=== PATIENT | male | born 1995 | race Caucasian/White ===

== ENCOUNTER 2023-08-21 01:06 | Emergency (ER) | payer OTHER ==
[2023-08-21 01:20] VITALS: TEMP 99.1
--- NOTE | 2023-08-21 01:31 | ERPHSYRPT ---
<CHRISTIE GARCIA - Last Filed: 08/21/23 06:40> - History of Present Illness Time Seen by Provider: 08/21/23 01:20 Historian: patient, family Exam Limitations: physical impairment Patient Subjective Stated Complaint: pt states he was awaken with sharp pain to left chest Triage Nursing Assessment: pt ambulated into the er; pt is axo x4; c/o chest pain; pt states 10/10 pain to left chest; pt states SOB; pt states difficulty with deep breath; clear apical heart tone; strong freddy radial pulses; strong freddy pedal pulse; clear lung sounds in all lobes; no edema present; skin PDW; tachycardic; hypertensive Physician History: This is an obese 28-year-old white male patient of Dr. Shafer who does not smoke cigarettes and does not use illicit drugs and presents with sudden onset of left lateral chest pain described as a stabbing pain that is sharp and worse with deep breath. He did not suffer a fall or acute trauma to the area. He has no bleeding or clotting disorders. He has never had anything like this before. Patient has no documented history of coronary disease. However, he has a strong family history of coronary artery disease. He has not had any cough or fevers Timing/Duration: today Activities at Onset: none Quality: sharpness, stabbing Location: other (Left lateral chest) Chest Pain Radiation: no radiation Severity of Pain-Max: moderate Severity of Pain-Current: moderate Modifying Factors: Improves With: breathing (Worsens pain with deep breath), sitting up (Improved the pain) Associated Symptoms: denies symptoms Prior Chest Pain/Cardiac Workup: no prior chest pain Nitro Today/Relief: no nitro taken today Aspirin Treatment Today: no aspirin today Allergies/Adverse Reactions: Penicillins Allergy (Verified 08/21/23 01:07) Home Medications: Loratadine [Claritin] 10 mg PO DAILY 08/21/23 [History] Sertraline HCl [Zoloft] 100 mg PO DAILY 08/21/23 [History] Hx Tetanus, Diphtheria Vaccination/Date Given: Yes Hx Influenza Vaccination/Date Given: Yes Hx Pneumococcal Vaccination/Date Given: No Immunizations Up to Date: No Travel Risk - International Travel Have you traveled outside of the country in past 3 weeks: No - Emerging Infectious Disease Are you exhibiting symptoms associated with any current EIDs: No - Review of Systems Constitutional: No Symptoms Eyes: No Symptoms Ears, Nose, & Throat: No Symptoms Respiratory: No Symptoms Cardiac: Chest Pain Abdominal/Gastrointestinal: No Symptoms Genitourinary Symptoms: No Symptoms Musculoskeletal: No Symptoms Skin: No Symptoms Neurological: No Symptoms Psychological: No Symptoms Endocrine: No Symptoms Hematologic/Lymphatic: No Symptoms Immunological/Allergic: No Symptoms All Other Systems: Reviewed and Negative - Past Medical History Pertinent Past Medical History: Yes Neurological History: No Pertinent History ENT History: No Pertinent History Cardiac History: No Pertinent History Respiratory History: Asthma Endocrine Medical History: No Pertinent History Musculoskeletal History: No Pertinent History GI Medical History: Other History: No Pertinent History Psycho-Social History: Depression Male Reproductive Disorders: No Pertinent History Other Medical History: Pt has been having "belly problems" for past month, intermittently. - Past Surgical History Past Surgical History: Yes Neuro Surgical History: No Pertinent History Cardiac: No Pertinent History Respiratory: No Pertinent History Gastrointestinal: Appendectomy Genitourinary: No Pertinent History Musculoskeletal: No Pertinent History Male Surgical History: No Pertinent History Other Surgical History: Tubes place in ears, T&A, front teeth taken out. - Social History Smoking Status: Never smoker Exposure to second hand smoke: Yes Drug Use: none Patient Lives Alone: No - Physical Exam General Appearance: mild distress, alert, anxiety, obese Eye Exam: PERRL/EOMI, eyes nml inspection Ears, Nose, Throat Exam: normal ENT inspection, moist mucous membranes Neck Exam: normal inspection, non-tender, supple, full range of motion Respiratory Exam: normal breath sounds, chest tenderness (Left lateral chest), lungs clear, airway intact, No respiratory distress Cardiovascular Exam: tachycardia Gastrointestinal/Abdomen Exam: soft, normal bowel sounds, No tenderness Rectal Exam: not done Back Exam: normal inspection, normal range of motion, No CVA tenderness, No vertebral tenderness Extremity Exam: normal inspection, normal range of motion, pelvis stable Neurologic Exam: alert, oriented x 3, cooperative, 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 as tested, nml cerebellar function, nml station & gait, sensation nml Skin Exam: normal color, warm, dry Lymphatic Exam: No adenopathy SpO2 Interpretation: normal SpO2: 97 O2 Delivery: Room Air - Course Nursing assessment & vital signs reviewed: Yes - Progress Progress: improved, re-examined Air Movement: good Progress Note: 08/21/23 02:16 My medical decision making and the assignment of moderate complexity to this patient's medical issue today is based on review of the patient's past medical history, review of the patient's medication list, review of patient drug allergy list, history presence and physical findings on examination. The workup in this patient includes placement of intravenous line, infusion of 2 mg intravenous morphine, 4 mg of intravenous Zofran, 4 baby aspirin, twelve-lead EKG, troponin level D-dimer level, CBC, CMP and chest x-ray. Differential diagnosis includes anxiety, musculoskeletal pain, pulmonary embol us, pneumonia, myocardial infarction, electrolyte abnormalities, dysrhythmias I interpreted the patient's portable chest x-ray. There is no evidence of any acute cardiopulmonary process. 08/21/23 06:[address] scan of the chest with contrast was read by the radiologist. He stated that this was not an adequate test to determine the status of a pulmonary embolus. He did comment that there is a left lower lobe subsegmental collapse/consolidation present. He recommended repeating the study. I am transferring care of this patient to Dr. Jose Chase at shift change. He will follow-up on the pending studies and make final disposition. Blood Culture(s) Obtained: No Counseled pt/family regarding: lab results, diagnosis, need for follow-up, rad results Medical Desision Making - Diagnostic Testing Diagnostic test were ordered, analyzed, and reviewed by me: Yes Radiological Interpretation: Reviewed by me, Teleradiologist Report - Departure Departure Disposition: Home Clinical Impression: Left-sided chest pain, hepatosteatosis, Spleen enlarged, bilateral pleural thickening, Pleurisy with effusion, Pneumonia Condition: Stable Critical Care Time: No Referrals: JOSEPH SHAFER MD [Primary Care Provider] - Follow up/PCP as directed Instructions: Pneumonia, Adult (DC), Angina (DC) Additional Instructions: An enlarged spleen was observed on today's CAT scan. Radiologist recommends further evaluation of your enlarged spleen via ultrasound. Be sure to follow-up with your primary care doctor within 48 hours and arrange ultrasound evaluation of your enlarged spleen. Discharge/Care Plan ADELINA DENNEY was seen on 08/21/23 in the Emergency Room. The patient was counseled regarding Diagnosis,Lab results, Imaging studies, need for follow up and when to return to the Emergency Room. Prescriptions given: Discharge Note I have spoken with the patient and/or caregivers. I have explained the patient's condition, diagnosis and treatment plan based on the information available to me at this time. I have answered the patient's and/or caregiver's questions and addressed any concerns. The patient and/or caregivers have as good understanding of the patient's diagnosis, condition and treatment plan as can be expected at this point. The vital signs have been stable. The patient's condition is stable and appropriate for discharge from the emergency department. The patient will pursue further outpatient evaluation with the primary care physician or other designated or consulting physician as outlined in the discharge instructions. The patient and/or caregivers are agreeable to this plan of care and follow-up instructions have been explained in detail. The patient and/or caregivers have received these instruction. The patient/and or caregivers are aware that any significant change in condition or worsening of symptoms should prompt an immediate return to this or the closest emergency department or call 911. Prescriptions: Levofloxacin [Levaquin 500 MG Tablet] 750 mg PO DAILY 7 Days #7 tablet <JOSE CHASE - Last Filed: 08/21/23 09:13> - Nursing Vital Signs Nursing Vital Signs: Initial Vital Signs Temperature 99.1 F 08/21/23 01:07 Pulse Rate 122 H 08/21/23 01:07 Respiratory Rate 14 08/21/23 01:07 Blood Pressure 144/103 08/21/23 01:07 O2 Sat by Pulse Oximetry 97 08/21/23 01:07 Pain Scale Pain Intensity 3 - CT Exams Chest CT Interpretation: Tele-radiologist Report (No PE, left sided pleural effusion with a consolidation suspicious for pneumonia. Bilateral pleural thickening hepatosteatosis and splenomegaly which requires ultrasound correlation.) Ordered Tests: Active Orders 24 hr Category Date Time Status Buffing Turner And Counter STAT Care 08/21/23 01:32 Active EKG-ER Only STAT Care 08/21/23 01:31 Active IV Insertion STAT Care 08/21/23 01:31 Active Pulse Oximetry (ED) STAT Care 08/21/23 01:31 Active CHEST 1 VIEW (PORTABLE) Stat Exams 08/21/23 01:31 Completed CHEST WITH CONTRAST [CT] Stat Exams 08/21/23 03:04 Completed CHEST WITH CONTRAST [CT] Stat Exams 08/21/23 06:00 Completed CBC W DIFF Stat Lab 08/21/23 01:35 Completed CMP Stat Lab 08/21/23 01:35 Completed D-DIMER QUANTITATIVE Stat Lab 08/21/23 01:35 Completed NT PRO BNPII Stat Lab 08/21/23 01:35 Completed PROTIME WITH INR Stat Lab 08/21/23 01:35 Completed TROPONIN Q4H Lab 08/21/23 01:35 Completed TROPONIN Q4H Lab 08/21/23 06:05 Completed TROPONIN Q4H Lab 08/21/23 09:45 Ordered Medication Summary Generic Name Dose Route Start Last Admin Trade Name Freq PRN Reason Stop Dose Admin Levofloxacin/Dextrose 500 mg in 100 mls @ 100 mls/hr 08/21/23 08:25 08/21/23 08:28 Levofloxacin 500mg/100ml D5w IV 08/21/23 09:24 100 mls/hr STAT STA 100 mls/hr Administration Discontinued Medications Generic Name Dose Route Start Last Admin Trade Name Freq PRN Reason Stop Dose Admin Aspirin 324 mg 08/21/23 01:31 08/21/23 01:40 Aspirin 81 Mg Tab.Chew PO 08/21/23 01:32 324 mg STAT ONE Administration Aspirin Confirm 08/21/23 01:35 Aspirin 81 Mg Tab.Chew Administered 08/21/23 01:36 Dose 324 mg .ROUTE .STK-MED ONE Enoxaparin Sodium 150 mg 08/21/23 06:01 08/21/23 06:15 Enoxaparin Sodium 150 Mg/Ml Syringe SQ 08/21/23 06:02 150 mg STAT ONE Administration Sodium Chloride 500 mls @ 500 mls/hr 08/21/23 03:04 08/21/23 04:30 Sodium Chloride 0.9% 500 Ml IV 08/21/23 04:03 Infused .Q1H ONE Infusion Sodium Chloride Confirm 08/21/23 03:24 Sodium Chloride 0.9% 500 Ml Administered 08/21/23 03:25 Dose 500 mls @ ud IV .STK-MED ONE Levofloxacin/Dextrose Confirm 08/21/23 08:27 Levofloxacin 500mg/100ml D5w Administered 08/21/23 08:28 Dose 500 mg in 100 mls @ ud IV .STK-MED ONE Metoprolol Tartrate 5 mg 08/21/23 03:04 08/21/23 03:25 Metoprolol Tartrate 5 Mg/5 Ml Vial IV 08/21/23 03:05 5 mg STAT ONE Administration Metoprolol Tartrate Confirm 08/21/23 03:23 Metoprolol Tartrate 5 Mg/5 Ml Vial Administered 08/21/23 03:24 Dose 5 mg IV .STK-MED ONE Morphine Sulfate 2 mg 08/21/23 01:31 08/21/23 01:40 Morphine Sulfate 2 Mg/Ml Inj IV 08/21/23 01:32 2 mg STAT ONE Administration Morphine Sulfate Confirm 08/21/23 01:36 Morphine Sulfate 2 Mg/Ml Inj Administered 08/21/23 01:37 Dose 2 mg .ROUTE .STK-MED ONE Morphine Sulfate 4 mg 08/21/23 03:05 08/21/23 03:25 Morphine Sulfate 4 Mg/Ml Injection IV 08/21/23 03:06 4 mg STAT ONE Administration Morphine Sulfate Confirm 08/21/23 03:23 Morphine Sulfate 4 Mg/Ml Injection Administered 08/21/23 03:24 Dose 4 mg .ROUTE .STK-MED ONE Ondansetron HCl 4 mg 08/21/23 01:31 08/21/23 01:40 Ondansetron Hcl 4 Mg/2 Ml Vial IV 08/21/23 01:32 4 mg STAT ONE Administration Ondansetron HCl Confirm 08/21/23 01:35 Ondansetron Hcl 4 Mg/2 Ml Vial Administered 08/21/23 01:36 Dose 4 mg .ROUTE .STK-MED ONE Lab/Rad Data: Laboratory Result Diagrams 08/21/23 01:35 08/21/23 01:35 Laboratory Results 08/21/23 08/21/23 08/21/23 Range/Units 06:05 01:35 01:35 WBC (4.0-10.5) x10^3/uL RBC (4.1-5.6) x10^6/uL Hgb (12.5-18.0) g/dL Hct (42-50) % MCV (78-100) fL MCH (26-32) pg MCHC (32-36) g/dL RDW (11.5-14.0) % Plt Count (150-450) x10^3/uL MPV (7.5-11.0) fL Gran % (36.0-66.0) % Immature Gran % (Auto) (0.00-0.4) % Nucleat RBC Rel Count (0.00-0.1) % Eos # (Auto) (0-0.5) x10^3/uL Immature Gran # (Auto) (0.00-0.03) x10^3u/L Absolute Lymphs (auto) (1.0-4.6) x10^3/uL Absolute Monos (auto) (0.0-1.3) x10^3/uL Absolute Nucleated RBC (0.00-0.01) x10^3u/L Lymphocytes % (24.0-44.0) % Monocytes % (0.0-12.0) % Eosinophils % (0.00-5.0) % Basophils % (0.0-0.4) % Absolute Granulocytes (1.4-6.9) x10^3/uL Basophils # (0-0.4) x10^3/uL PT 10.3 (9.4-12.5) SECONDS INR 0.94 (0.8-3.0) D-Dimer 0.54 H (0.0-0.50) mg/L Sodium (135-145) mmol/L Potassium (3.5-5.1) mmol/L Chloride (98-107) mmol/L Carbon Dioxide (22-30) mmol/L Anion Gap (5-15) MEQ/L BUN (9-20) mg/dL Creatinine (0.66-1.25) mg/dL Estimated GFR ML/MIN Glucose (74-106) mg/dL Calcium (8.4-10.2) mg/dL Total Bilirubin (0.2-1.3) mg/dL AST (17-59) U/L ALT (0-50) U/L Alkaline Phosphatase (38-126) U/L Troponin I < 0.012 < 0.012 (0.000-0.033) ng/mL NT-Pro-B Natriuret Pep 43.6 (<300) pg/mL Serum Total Protein (6.3-8.2) g/dL Albumin (3.5-5.0) g/dL 08/21/23 08/21/23 Range/Units 01:35 01:35 WBC 8.5 (4.0-10.5) x10^3/uL RBC 4.67 (4.1-5.6) x10^6/uL Hgb 11.7 L (12.5-18.0) g/dL Hct 38.9 L (42-50) % MCV 83.3 (78-100) fL MCH 25.1 L (26-32) pg MCHC 30.1 L (32-36) g/dL RDW 14.9 H (11.5-14.0) % Plt Count 189 (150-450) x10^3/uL MPV 11.5 H (7.5-11.0) fL Gran % 63.0 (36.0-66.0) % Immature Gran % (Auto) 0.5 H (0.00-0.4) % Nucleat RBC Rel Count 0.0 (0.00-0.1) % Eos # (Auto) 0.19 (0-0.5) x10^3/uL Immature Gran # (Auto) 0.04 H (0.00-0.03) x10^3u/L Absolute Lymphs (auto) 1.67 (1.0-4.6) x10^3/uL Absolute Monos (auto) 1.18 (0.0-1.3) x10^3/uL Absolute Nucleated RBC 0.00 (0.00-0.01) x10^3u/L Lymphocytes % 19.8 L (24.0-44.0) % Monocytes % 14.0 H (0.0-12.0) % Eosinophils % 2.2 (0.00-5.0) % Basophils % 0.5 (0.0-0.4) % Absolute Granulocytes 5.33 (1.4-6.9) x10^3/uL Basophils # 0.04 (0-0.4) x10^3/uL PT (9.4-12.5) SECONDS INR (0.8-3.0) D-Dimer (0.0-0.50) mg/L Sodium 142 (135-145) mmol/L Potassium 4.0 (3.5-5.1) mmol/L Chloride 106 (98-107) mmol/L Carbon Dioxide 28 (22-30) mmol/L Anion Gap 11.1 (5-15) MEQ/L BUN 14 (9-20) mg/dL Creatinine 0.99 (0.66-1.25) mg/dL Estimated GFR 107.1 ML/MIN Glucose 183 H (74-106) mg/dL Calcium 9.0 (8.4-10.2) mg/dL Total Bilirubin 0.30 (0.2-1.3) mg/dL AST 21 (17-59) U/L ALT 28 (0-50) U/L Alkaline Phosphatase 82 (38-126) U/L Troponin I (0.000-0.033) ng/mL NT-Pro-B Natriuret Pep (<300) pg/mL Serum Total Protein 7.0 (6.3-8.2) g/dL Albumin 3.8 (3.5-5.0) g/dL - Progress Progress Note: Patient endorsed to Dr. Chase at approximately 7 AM at the change of shift. Dr. Chase advised follow-up on pending CAT scan as the original CAT scan was indeterminate for PE. The repeat CAT scan reveals no pulmonary embolus. There is subpleural groundglass densities with reticular densities along with bronchovascular tree in both lower lobes which is suggestive of early consolidation viral versus atypical pneumonia. Bilateral pleural thickening on the posterior with mild left pleural effusion. Hepatic steatosis and splenomegaly radiologist advises ultrasound follow-up of the splenomegaly. The need for outpatient ultrasound to further evaluate the splenomegaly was conveyed to our patient. He agrees to follow-up with his primary care doctor and obtain outpatient ultrasound for reevaluation. Patient is allergic to penicillin. Patient received a dose of Levaquin in our ED. A prescription for Levaquin 750 daily for 7 days was forwarded to patient's pharmacy. Patient otherwise feels well. No active pain. Vital stable. Patient states he is ready for discharge. He voices no other complaints or concerns at this time. Portions of this note were created with voice recognition technology. There may be grammatical, spelling, punctuation or sound alike errors 08/21/23 09:09
[2023-08-21] MEDS ORDERED: BABY ASPIRIN 81 MG CHEW ONE (01:35)
[2023-08-21] MEDS ORDERED: Zofran 4 MG/2 ML VIAL ONE (01:35)
[2023-08-21] MEDS ORDERED: MORPHINE SULFATE 2 MG INJ ONE (01:36)
[2023-08-21] MEDS: MORPHINE SULFATE 2 MG INJ IV ONE (01:40)
[2023-08-21] MEDS: BABY ASPIRIN 81 MG CHEW PO ONE (01:40)
[2023-08-21] MEDS: Zofran 4 MG/2 ML VIAL IV ONE (01:40)
[2023-08-21 01:46] LABS: Absolute Neutrophil Ct (ANC) 5.33 x10^3/uL (1.4-6.9); BASOPHIL % 0.5 % (0.0-0.4); Basophil (Absolute #) 0.04 x10^3/uL (0-0.4); Eosinophil % 2.2 % (0.00-5.0); Eosinophil (Absolute #) 0.19 x10^3/uL (0-0.5); Hematocrit 38.9 % (42-50); Hemoglobin 11.7 g/dL (12.5-18.0); IMMATURE GRAN # 0.04 x10^3u/L (0.00-0.03); IMMATURE GRAN % 0.5 % (0.00-0.4); Lymphocyte (Absolute #) 1.67 x10^3/uL (1.0-4.6); Lymphocytes % 19.8 % (24.0-44.0); Mean Cell Volume 83.3 fL (78-100); Mean Corpuscular Hemoglobin 25.1 pg (26-32); Mean Corpuscular Hgb Concent. 30.1 g/dL (32-36); Mean Platelet Volume 11.5 fL (7.5-11.0); Monocyte (Absolute #) 1.18 x10^3/uL (0.0-1.3); Platelet Count 189 x10^3/uL (150-450); Red Blood Count 4.67 x10^6/uL (4.1-5.6); Red Cell Distribution Width 14.9 % (11.5-14.0); White Blood Count 8.5 x10^3/uL (4.0-10.5)
[2023-08-21 02:00] LABS: D-DIMER QUANTITATIVE 0.54 mg/L (0.0-0.50); INR 0.94 (0.8-3.0); PROTIME 10.3 SECONDS (9.4-12.5)
[2023-08-21 02:32] LABS: ALBUMIN 3.8 g/dL (3.5-5.0); ANION GAP 11.1 MEQ/L (5-15); BILIRUBIN,TOTAL 0.3 mg/dL (0.2-1.3); Creatinine 1 0.99 mg/dL (0.66-1.25); EST GLOMERULAR FILTRATION RATE 107.1 ML/MIN
[2023-08-21 02:44] LABS: NT PRO BNPII 43.6 pg/mL (<300); TROPONIN < 0.012 ng/mL (0.000-0.033)
[2023-08-21] MEDS ORDERED: LOPRESSOR INJECTION IV ONE (03:23)
[2023-08-21] MEDS ORDERED: MORPHINE SULFATE 4 MG INJ ONE (03:23)
[2023-08-21] MEDS ORDERED: Sodium Chloride 0.9% 500 ML 500 ML IV ONE (03:24)
[2023-08-21] MEDS: MORPHINE SULFATE 4 MG INJ IV ONE (03:25)
[2023-08-21] MEDS: LOPRESSOR INJECTION IV ONE (03:25)
[2023-08-21] MEDS: Sodium Chloride 0.9% 500 ML 500 ML IV ONE (03:26)
--- NOTE | 2023-08-21 04:49 | XRAY ---
CLINICAL HISTORY: Left chest pain; elevated D-dimer COMPARISON: None TECHNIQUE: : Multiple enhanced axial sections were acquired through chest and upper abdomen IV contrast 370 mg/ml isovue 99 ml was adminitrated. In addition, coronal and sagittal reformatted images were also acquired. "One of the following dose reduction techniques was utilized for this exam: Automated exposure control, adjustment of the mA and/or kV according to patient size, and use of iterative reconstruction." Limited images are provided, PE protocol is not performed. FINDINGS: The pulmonary trunk appears normal in size, however comment on Pulmonary thromboembolism cannot be possible due to inadequate protocol repeat study with adequate protocol is advised. Subsegmental collapse/consolidation in the lateral segment of the left lower lobe. Mild left sided pleural thickening /pleural effusion. Fibro-atelectatic changes noted in the bilateral lower zone Calcified granuloma noted in right lower zone. Subtle ill-defined groundglass is noted in bilateral lower zone. No nodular shadowing or interstitial prominence was seen in either lung field. No evidence of any mass lesion was seen. No evidence of pleural effusion or pneumothorax on either side. The trachea and main stem bronchi appear patent. The visualized esophagus appears normal. Normal enhancing mediastinal vessels were noted. On mediastinal window settings, Few subcentimeter prominent lymph nodes are noted in the mediastinum Included sections through the upper abdomen show Fatty changes noted in the liver. Spleen appears enlarged and bulky with ill-defined hypodensities noted in the spleen, for further evaluation would recommend CT abdomen with contrast. On appropriate bone window settings, no significant bony abnormality was detected. IMPRESSION: 1. Due to limited evaluation comment on pulmonary thromboembolism cannot be possible, would recommend repeat study. 2. Subsegmental collapse/consolidation in the lateral segment of the left lower lobe. 3. Mild left-sided pleural thickening /pleural effusion. 4. Fibro-atelectatic changes with groundglass are noted in both lower lobes. 5. Fatty changes were noted in the liver. 6. Spleen appears enlarged and bulky with few ill-defined hypodensities, if indicated clinically would recommend contrast CT abdomen study Electronically Signed by: Victoriano Jang MD. (08/21/2023 04:46:34 EDT)
[2023-08-21] MEDS: ENOXAPARIN SODIUM SQ ONE (06:15)
--- NOTE | 2023-08-21 07:30 | XRAY ---
CLINICAL HISTORY: Left lateral chest pain COMPARISON: 08/21/2023 02:19 TAILER OUT. TECHNIQUE: Contiguous axial images of the chest with i.v. contrast were obtained from the thoracic inlet to the level of adrenal glands. Coronal and sagittal reformat images were also obtained. Images were reviewed in soft tissue, lung parenchyma and bone window settings. CTDI: 77.84 mGy, DLP: 1348 mGy.com. One of these 3D techniques was utilized: Maximum Intensity Pixel (MIP), 3D Reconstructed Images, Volume Rendered Images, Surface Shaded Rendering. One of the following dose reduction techniques were utilized for this exam: Automated exposure control, adjustment of the mA and/or kV according to patient size, use of iterative reconstruction. FINDINGS: Pulmonary arteries: The pulmonary truncus measures 2.8 cm, right pulmonary artery measures 1.75 cm and left pulmonary artery measures 1.7. cm which are normal. The pulmonary arteries are open without any filling defects. No thrombosis was detected. Mediastinum: There is no mediastinal, hilar, or axillary lymphadenopathy. The trachea and main stem bronchi are patent. The heart size is increased. There is no pericardial effusion. Fat pads of both cardiophrenic angles are noted. Thoracic aorta is normal in caliber without an aneurysm or dissection. The esophagus is normal in course and caliber. Lung Parenchyma: There is bilateral mild pleural thickening on the posterior with mild left pleural effusion. There are subpleural ground-glass densities in lower lobes. There are reticular densities along with bronchovascular tree in lower lobes. The areas of both lungs appear to be without signs of mass or alveolar consolidation. There is compression findings of the left lower lobe due to pleural effusion. There is no pneumothorax. There are linear fibrotic bands of the posterior segments of the both lower lobes. No abnormality in surrounding bone and soft tissues. Included abdominal organs: Hepatosteatosis is noted. Also, the included spleen is enlarged. IMPRESSION: 1. No pulmonary artery thrombus/emboli. 2. Subpleural ground glass densities with reticular densities along with bronchovascular tree in both lower lobes, which might be suggestive of early pneumonic consolidation and/or atypical/viral pneumonia. 3. Bilateral pleural thickening on the posterior with mild left pleural effusion. 4. Sequel fibrotic changes of both lower lobes. 5. Hepatosteatosis. 6. Splenomegaly. US correlation is recommended. Electronically Signed by: Victoriano Jang MD. (08/21/2023 07:26:51 EDT)
--- NOTE | 2023-08-21 07:58 | XRAY ---
Indication: Chest pain. Comparison: July 02, 2018. Portable chest less inflated crowding the lung bases. No focal infiltrate, consolidation, or large effusion. Heart not enlarged. Bony thorax intact. Impression: Nonacute underinflated chest.
[2023-08-21 08:00] VITALS: O2SAT 98
[2023-08-21] MEDS ORDERED: Levofloxacin 500MG/100ML D5W 500 MG/100 ML BAG IV ONE (08:27)
[2023-08-21] MEDS: Levofloxacin 500MG/100ML D5W 500 MG/100 ML BAG IV STA (08:28)
[2023-08-21 09:36] VITALS: BP 126/87; PULSE 101; RESP 16
== END 2023-08-21 09:36 | disposition home or self-care (01) ==
LOC: ED 01:06
DX: J18.9 Pneumonia, unspecified organism (principal); R07.9 Chest pain, unspecified; K76.0 Fatty (change of) liver, not elsewhere classified; R16.1 Splenomegaly, not elsewhere classified; J92.9 Pleural plaque without asbestos; J90 Pleural effusion, not elsewhere classified; Z79.899 Other long term (current) drug therapy
CPT/HCPCS: 36000; 36415; 71045; 71260; 80053; 83880; 84484; 85025; 85379; 85610; 93005; 93041; 94760; 96365; 96372; 96374; 96375; 96376; 99285; J1650; J1956; J2270; J2405; A9270-GY

== ENCOUNTER 2024-03-05 14:52 | Emergency (ER) | payer BC ==
--- NOTE | 2024-03-05 14:56 | ERPHSYRPT ---
- History of Present Illness Time Seen by Provider: 03/05/24 14:55 Historian: patient Exam Limitations: no limitations Physician History: This is an obese 28-year-old white male patient of Dr. Meraz who presents to the emergency room with left anterior lateral chest pain that worsens with deep inspiration and cough. He had similar symptoms approximately 6 months ago which was diagnosed as pneumonia. He has no known or documented history of coronary artery disease. He does have a history of diabetes, hypertension, asthma and depression. He does not see a floor nurse. I did review/interpret the twelve- lead EKG that was performed on 08/21/2023 which showed sinus tachycardia at a heart rate of 120 bpm. Patient states he does not have shortness of breath. The pain is in the anterior lateral aspect of his chest and radiates posteriorly. It is sharp and worsens with deep inspiration. He has not had a fever. He has no flulike symptoms. Timing/Duration: today, worse (Symptoms have worsened throughout the day) Quality: sharpness, stabbing Location: other (Left anterior lateral) Chest Pain Radiation: back Severity of Pain-Max: moderate Severity of Pain-Current: moderate Modifying Factors: Improves With: breathing (Deep inspiration worsens), coughing, movement Associated Symptoms: cough, hurts to breathe, No abdominal pain, No shortness of breath Prior Chest Pain/Cardiac Workup: no prior cardiac workup Nitro Today/Relief: no nitro taken today Aspirin Treatment Today: no aspirin today Allergies/Adverse Reactions: Penicillins Allergy (Verified 03/05/24 14:54) Home Medications: Lisinopril 10 mg [Zestril 10 MG] 10 mg PO DAILY 03/05/24 [History] Metformin HCl 500 mg [Glucophage 500 MG] 500 mg PO DAILY 03/05/24 [History] Hx Tetanus, Diphtheria Vaccination/Date Given: Yes Hx Influenza Vaccination/Date Given: Yes Hx Pneumococcal Vaccination/Date Given: No Travel Risk - International Travel Have you traveled outside of the country in past 3 weeks: No - Emerging Infectious Disease Are you exhibiting symptoms associated with any current EIDs: No - Review of Systems Constitutional: No Symptoms Eyes: No Symptoms Ears, Nose, & Throat: No Symptoms Respiratory: No Symptoms Cardiac: Chest Pain (Left anterior lateral) Abdominal/Gastrointestinal: No Symptoms Genitourinary Symptoms: No Symptoms Musculoskeletal: No Symptoms Skin: No Symptoms Neurological: No Symptoms Psychological: No Symptoms Endocrine: No Symptoms Hematologic/Lymphatic: No Symptoms Immunological/Allergic: No Symptoms All Other Systems: Reviewed and Negative - Past Medical History Pertinent Past Medical History: Yes Neurological History: No Pertinent History ENT History: No Pertinent History Cardiac History: No Pertinent History Respiratory History: Asthma Endocrine Medical History: No Pertinent History Musculoskeletal History: No Pertinent History GI Medical History: Other History: No Pertinent History Psycho-Social History: Depression Male Reproductive Disorders: No Pertinent History Other Medical History: Pt has been having "belly problems" for past month, intermittently. - Past Surgical History Past Surgical History: Yes Neuro Surgical History: No Pertinent History Cardiac: No Pertinent History Respiratory: No Pertinent History Gastrointestinal: Appendectomy Genitourinary: No Pertinent History Musculoskeletal: No Pertinent History Male Surgical History: No Pertinent History Other Surgical History: Tubes place in ears, T&A, front teeth taken out. - Social History Smoking Status: Never smoker Exposure to second hand smoke: Yes Drug Use: none Patient Lives Alone: No - Social Determinants of Health Will the patient participate in the screening: Yes Do you worry about a steady place to live?: No In the past 12 months,have you had to go without utilities?: No Transportation Issues: No Has anyone in your support network made you feel unsafe?: No Have you or anyone in your house had to go without enough: No - Nursing Vital Signs Nursing Vital Signs: Initial Vital Signs Temperature 98.4 F 03/05/24 14:55 Pulse Rate 110 H 03/05/24 14:55 Respiratory Rate 18 03/05/24 14:55 Blood Pressure 165/106 03/05/24 14:55 O2 Sat by Pulse Oximetry 97 03/05/24 14:55 Pain Scale Pain Intensity 4 - Physical Exam General Appearance: mild distress, alert, anxiety, obese Eye Exam: PERRL/EOMI, eyes nml inspection Ears, Nose, Throat Exam: normal ENT inspection, moist mucous membranes Neck Exam: normal inspection, non-tender, supple, full range of motion Respiratory Exam: normal breath sounds, chest tenderness (Left lower anterior lateral chest pain with deep inspiration), lungs clear, airway intact, No respiratory distress Cardiovascular Exam: tachycardia Gastrointestinal/Abdomen Exam: soft, normal bowel sounds, No tenderness Rectal Exam: not done Extremity Exam: normal inspection, normal range of motion, pelvis stable Neurologic Exam: alert, oriented x 3, cooperative, client solutions manager II-XII nml as tested, nml cerebellar function, nml station & gait, sensation nml Skin Exam: normal color, warm, dry Lymphatic Exam: No adenopathy SpO2 Interpretation: normal O2 Delivery: Room Air - Course Nursing assessment & vital signs reviewed: Yes EKG Interpreted by Me: RATE (106), Sinus Tach, NORMAL AXIS, NORMAL INTERVALS, NORMAL QRS, Other (No acute ischemic changes on today's twelve-lead EKG. QTc is 450) Ordered Tests: Active Orders 24 hr Category Date Time Status Cafe Or Restaurant Manager STAT Care 03/05/24 14:56 Active EKG-ER Only STAT Care 03/05/24 14:56 Active IV Insertion STAT Care 03/05/24 14:56 Active Pulse Oximetry (ED) STAT Care 03/05/24 14:56 Active CHEST WITH CONTRAST [CT] Stat Exams 03/05/24 15:23 Completed CBC W DIFF Stat Lab 03/05/24 15:00 Completed CMP Stat Lab 03/05/24 15:00 Completed D-DIMER QUANTITATIVE Stat Lab 03/05/24 15:00 Completed PROTIME WITH INR Stat Lab 03/05/24 15:00 Completed TROPONIN Q4H Lab 03/05/24 15:00 Completed TROPONIN Q4H Lab 03/05/24 19:00 Ordered TROPONIN Q4H Lab 03/05/24 23:00 Ordered Medication Summary Generic Name Dose Route Start Last Admin Trade Name Freq PRN Reason Stop Dose Admin Sodium Chloride 250 mls @ 250 mls/hr 03/05/24 15:30 03/05/24 16:35 Sodium Chloride 0.9% 250 Ml IV 03/05/24 16:29 Infused .Q1H ENEDINA Infusion Discontinued Medications Generic Name Dose Route Start Last Admin Trade Name Freq PRN Reason Stop Dose Admin Aspirin 324 mg 03/05/24 14:56 03/05/24 15:03 Aspirin 81 Mg Tab.Chew PO 03/05/24 14:57 324 mg STAT ONE Administration Aspirin Confirm 03/05/24 15:02 Aspirin 81 Mg Tab.Chew Administered 03/05/24 15:03 Dose 324 mg .ROUTE .STK-MED ONE Morphine Sulfate 4 mg 03/05/24 15:23 03/05/24 15:28 Morphine Sulfate 4 Mg/Ml Injection IV 03/05/24 15:24 4 mg STAT ONE Administration Morphine Sulfate Confirm 03/05/24 15:26 Morphine Sulfate 4 Mg/Ml Injection Administered 03/05/24 15: Dose 4 mg .ROUTE .STK-MED ONE Ondansetron HCl 4 mg 03/05/24 15:23 03/05/24 15:27 Ondansetron Hcl 4 Mg/2 Ml Vial IV 03/05/24 15: 4 mg STAT ONE Administration Ondansetron HCl Confirm 03/05/24 15:26 Ondansetron Hcl 4 Mg/2 Ml Vial Administered 03/05/24 15: Dose 4 mg .ROUTE .STK-MED ONE Lab/Rad Data: Laboratory Result Diagrams 03/05/24 15:00 03/05/24 15:00 Laboratory Results 03/05/24 03/05/24 03/05/24 Range/Units 15:00 15:00 15:00 WBC (4.23-9.07) x10^3/uL RBC (4.63-6.08) x10^6/uL Hgb (13.7-17.5) g/dL Hct (40.1-51.0) % MCV (79.0-92.2) fL MCH (25.7-32.2) pg MCHC (32.3-36.5) g/dL RDW (11.6-14.4) % Plt Count (163-337) x10^3/uL MPV (9.4-12.4) fL Gran % (34.0-67.9) % Immature Gran % (Auto) (0.001-0.429) % Nucleat RBC Rel Count (0.00-0.2) % Eos # (Auto) (0.04-0.54) x10^3/uL Immature Gran # (Auto) (0.001-0.031) x10^3u/L Absolute Lymphs (auto) (1.32-3.57) x10^3/uL Absolute Monos (auto) (0.30-0.82) x10^3/uL Absolute Nucleated RBC (0.00-0.012) x10^3u/L Lymphocytes % (21.8-53.1) % Monocytes % (5.3-12.2) % Eosinophils % (0.8-7.0) % Basophils % (0.2-1.2) % Absolute Granulocytes (1.78-5.38) x10^3/uL Basophils # (0.01-0.08) x10^3/uL PT 11.0 (9.4-12.5) SECONDS INR 1.01 (0.8-3.0) D-Dimer 0.59 H (0.0-0.50) mg/L Sodium 140 (135-145) mmol/L Potassium 4.4 (3.5-5.1) mmol/L Chloride 103 (98-107) mmol/L Carbon Dioxide 23 (22-30) mmol/L Anion Gap 17.9 H (5-15) MEQ/L BUN 13 (9-20) mg/dL Creatinine 0.66 (0.66-1.25) mg/dL Estimated GFR 131.8 ML/MIN Glucose 135 H (74-106) mg/dL Calcium 9.4 (8.4-10.2) mg/dL Total Bilirubin 0.40 (0.2-1.3) mg/dL AST 31 (17-59) U/L ALT 43 (0-50) U/L Alkaline Phosphatase 93 (38-126) U/L Troponin I < 0.012 (0.000-0.033) ng/mL Serum Total Protein 7.5 (6.3-8.2) g/dL Albumin 4.1 (3.5-5.0) g/dL 03/05/24 Range/Units 15:00 WBC 9.9 H (4.23-9.07) x10^3/uL RBC 5.30 (4.63-6.08) x10^6/uL Hgb 13.3 L (13.7-17.5) g/dL Hct 42.2 (40.1-51.0) % MCV 79.6 (79.0-92.2) fL MCH 25.1 L (25.7-32.2) pg MCHC 31.5 L (32.3-36.5) g/dL RDW 15.4 H (11.6-14.4) % Plt Count 233 (163-337) x10^3/uL MPV 10.2 (9.4-12.4) fL Gran % 70.3 H (34.0-67.9) % Immature Gran % (Auto) 0.6 H (0.001-0.429) % Nucleat RBC Rel Count 0.0 (0.00-0.2) % Eos # (Auto) 0.31 (0.04-0.54) x10^3/uL Immature Gran # (Auto) 0.06 H (0.001-0.031) x10^3u/L Absolute Lymphs (auto) 1.84 (1.32-3.57) x10^3/uL Absolute Monos (auto) 0.68 (0.30-0.82) x10^3/uL Absolute Nucleated RBC 0.00 (0.00-0.012) x10^3u/L Lymphocytes % 18.5 L (21.8-53.1) % Monocytes % 6.9 (5.3-12.2) % Eosinophils % 3.1 (0.8-7.0) % Basophils % 0.6 (0.2-1.2) % Absolute Granulocytes 6.97 H (1.78-5.38) x10^3/uL Basophils # 0.06 (0.01-0.08) x10^3/uL PT (9.4-12.5) SECONDS INR (0.8-3.0) D-Dimer (0.0-0.50) mg/L Sodium (135-145) mmol/L Potassium (3.5-5.1) mmol/L Chloride (98-107) mmol/L Carbon Dioxide (22-30) mmol/L Anion Gap (5-15) MEQ/L BUN (9-20) mg/dL Creatinine (0.66-1.25) mg/dL Estimated GFR ML/MIN Glucose (74-106) mg/dL Calcium (8.4-10.2) mg/dL Total Bilirubin (0.2-1.3) mg/dL AST (17-59) U/L ALT (0-50) U/L Alkaline Phosphatase (38-126) U/L Troponin I (0.000-0.033) ng/mL Serum Total Protein (6.3-8.2) g/dL Albumin (3.5-5.0) g/dL - Progress Progress: improved, re-examined Air Movement: good Progress Note: 03/05/24 15:32 My medical decision making the assignment of moderate complexity is based on review of the patient's past medical history, review of the patient's medication list, reviewed patient drug allergy list, history present illness and physical findings on examination. The workup in this patient includes placement of intravenous line, provide the patient with 324 mg of baby aspirin, CBC, CMP, D- dimer level, troponin level, twelve-lead EKG, CT scan of the chest with contrast to evaluate for pulmonary embolus, provide the patient with intravenous Zofran and intravenous morphine. Differential diagnosis includes but is not limited to pleurisy, pneumonia, anxiety, electrolyte abnormalities, arrhythmias, myocardial infarction 03/05/24 16:53 I interpreted the patient's laboratory data results. Based on the laboratory data results, there is elevated D-dimer at 0.59. Given the patient's potential for having a pulmonary embolus we ordered a CT scan of the chest with contrast. No other acute, emergent findings on his laboratory data results. The CT scan of the chest with contrast was interpreted by the radiologist and compared to similar study dated 08/21/2023. The impression states grossly negative for pulmonary embolus. No acute cardiopulmonary abnormalities present. 03/05/24 17:02 I reexamined the patient. Patient states that he is feeling much better and the pain he was feeling before is nearly completely gone. His vital signs are sta ble. We will treat him as if he has had pleurisy and provide him with a prescription for NSAIDs and antibiotic. 03/05/24 17:04 Patient states he has had Keflex in the past with no issues/adverse reactions Blood Culture(s) Obtained: No Antibiotics given: Yes Counseled pt/family regarding: lab results, diagnosis, need for follow-up, rad results Medical Desision Making - Independent Historian Additional History obtained from: Mother - Diagnostic Testing Diagnostic test were ordered, analyzed, and reviewed by me: Yes Radiological Interpretation: Reviewed by me, Teleradiologist Report - Risk of complications The pt has a mod risk of morbidity or mortality based on: Need for prescription drug management - Departure Departure Disposition: Home Clinical Impression: Pleurisy Condition: Stable Critical Care Time: No Referrals: JOSEPH MERAZ MD [Primary Care Provider] - Follow up/PCP as directed Additional Instructions: Drink plenty of fluids. Take your medications as prescribed. Call your primary care provider on 03/07/2024, to make arranges for follow-up appointment to be seen in the next 5 to 7 days. Prescriptions: Cephalexin Mh 500 mg [Keflex 500 mg] 500 mg PO TID #21 cap Naproxen 500 mg [Naprosyn 500 MG] 500 mg PO BID #10 tablet
[2024-03-05] MEDS ORDERED: BABY ASPIRIN 81 MG CHEW ONE (15:02)
[2024-03-05] MEDS: BABY ASPIRIN 81 MG CHEW PO ONE (15:03)
[2024-03-05 15:05] VITALS: TEMP 98.4
[2024-03-05 15:09] LABS: Absolute Neutrophil Ct (ANC) 6.97 x10^3/uL (1.78-5.38); BASOPHIL % 0.6 % (0.2-1.2); Basophil (Absolute #) 0.06 x10^3/uL (0.01-0.08); Eosinophil % 3.1 % (0.8-7.0); Eosinophil (Absolute #) 0.31 x10^3/uL (0.04-0.54); Hematocrit 42.2 % (40.1-51.0); Hemoglobin 13.3 g/dL (13.7-17.5); IMMATURE GRAN # 0.06 x10^3u/L (0.001-0.031); IMMATURE GRAN % 0.6 % (0.001-0.429); Lymphocyte (Absolute #) 1.84 x10^3/uL (1.32-3.57); Lymphocytes % 18.5 % (21.8-53.1); Mean Cell Volume 79.6 fL (79.0-92.2); Mean Corpuscular Hemoglobin 25.1 pg (25.7-32.2); Mean Corpuscular Hgb Concent. 31.5 g/dL (32.3-36.5); Mean Platelet Volume 10.2 fL (9.4-12.4); Monocyte (Absolute #) 0.68 x10^3/uL (0.30-0.82); Monocytes % 6.9 % (5.3-12.2); Neutrophil % 70.3 % (34.0-67.9); Platelet Count 233 x10^3/uL (163-337); Red Cell Distribution Width 15.4 % (11.6-14.4); White Blood Count 9.9 x10^3/uL (4.23-9.07)
[2024-03-05 15:22] LABS: ALBUMIN 4.1 g/dL (3.5-5.0); ANION GAP 17.9 MEQ/L (5-15); BILIRUBIN,TOTAL 0.4 mg/dL (0.2-1.3); Calcium 9.4 mg/dL (8.4-10.2); Creatinine 1 0.66 mg/dL (0.66-1.25); EST GLOMERULAR FILTRATION RATE 131.8 ML/MIN; Potassium 4.4 mmol/L (3.5-5.1); Total Protein 7.5 g/dL (6.3-8.2)
[2024-03-05 15:25] LABS: D-DIMER QUANTITATIVE 0.59 mg/L (0.0-0.50); INR 1.01 (0.8-3.0)
[2024-03-05] MEDS ORDERED: Zofran 4 MG/2 ML VIAL ONE (15:26)
[2024-03-05] MEDS ORDERED: MORPHINE SULFATE 4 MG INJ ONE (15:26)
[2024-03-05] MEDS: Zofran 4 MG/2 ML VIAL IV ONE (15:27)
[2024-03-05] MEDS ORDERED: Sodium Chloride 0.9% 250 ML 250 ML IV ONE (15:27)
[2024-03-05] MEDS: Sodium Chloride 0.9% 250 ML 250 ML IV SCH (15:27)
[2024-03-05] MEDS: MORPHINE SULFATE 4 MG INJ IV ONE (15:28)
[2024-03-05 16:24] VITALS: O2SAT 97
--- NOTE | 2024-03-05 16:34 | XRAY ---
Indication: Chest pain, cough, short of breath, and tachycardia. Multiple contiguous axial images obtained through the chest using 100 cc Isovue 370 contrast and PE protocol. Comparison: August 21, 2023 Suboptimal opacification pulmonary arteries and mild diffuse respiration artifact limits evaluation for pulmonary embolus. No obvious central pulmonary embolus. Heart not enlarged. Aorta is normal in course and caliber. Stable small right hilar calcified node. No pathologic mediastinal/hilar lymphadenopathy. Lungs demonstrates mild bibasilar dependent atelectasis. No suspicious pulmonary mass/nodule, infiltrate, or effusion. Bony thorax intact. Limited upper abdomen again demonstrates fatty liver and 15.5 cm splenomegaly. Impression: Again limited evaluation for pulmonary embolus. Continued grossly negative for pulmonary embolus. No acute cardiopulmonary abnormalities. Again incidental fatty liver, splenomegaly, and old granulomatous disease.
[2024-03-05 17:03] VITALS: BP 140/97; RESP 18
[2024-03-05 17:15] VITALS: PULSE 93
== END 2024-03-05 17:24 | disposition home or self-care (01) ==
LOC: ED 14:52
DX: R09.1 Pleurisy (principal); E11.9 Type 2 diabetes mellitus without complications; I10 Essential (primary) hypertension; Z79.84 Long term (current) use of oral hypoglycemic drugs; Z79.899 Other long term (current) drug therapy
CPT/HCPCS: 36415; 71260; 80053; 84484; 85025; 85379; 85610; 93005; 93041; 94760; 96374; 96375; 99284; 99285; J2270; J2405; A9270-GY